=== PATIENT | female | born 1985 | race Asian ===

== ENCOUNTER 2018-07-13 16:32 | Day surgery (SDC) | payer BC, OTHER ==
[~2018-07-13] VITALS: Ht 162.6 cm; Wt 82.4 kg
[2018-07-13] MEDS ORDERED: LACTATED RINGERS 1,000 ML IV SCH (17:00)
[2018-07-13 17:01] VITALS: BP 112/72
[2018-07-13] MEDS ORDERED: SPIROLINA PO (17:17)
[2018-07-13] MEDS ORDERED: IBUP-1484 PO (17:17)
[2018-07-13 17:18] LABS: HCG UR SG 1.015 (1.003-1.030)
[2018-07-13] MEDS ORDERED: MIDAZOLAM 1 MG/ML, 2ML ONE (18:26)
[2018-07-13] MEDS ORDERED: FENTANYL PF 100 MCG/2ML ONE (18:26)
[2018-07-13] MEDS ORDERED: BUPIVACAINE/PF-EPI 0.5% 1:200K ONE (18:27)
[2018-07-13] MEDS ORDERED: PROPOFOL 10 MG/ML, 20ML ONE (18:29)
[2018-07-13] MEDS ORDERED: HYDROmorphone 1 MG/ML, 1ML IV PRN (19:00)
[2018-07-13] MEDS ORDERED: ONDANSETRON 2MG/ML, 2ML IV PRN (19:00)
[2018-07-13] MEDS ORDERED: LORazepam 2 MG/ML, 1ML IVPush PRN (19:00)
[2018-07-13] MEDS ORDERED: hydrALAzine 20 MG/ML, 1ML IV PRN (19:00)
[2018-07-13] MEDS ORDERED: PROMETHAZINE 25 MG/ML, 1ML IV PRN (19:00)
[2018-07-13] MEDS ORDERED: ACETAMINOPHEN 325 MG TABLET PO PRN (19:00)
[2018-07-13] MEDS ORDERED: FENTANYL PF 100 MCG/2ML IV PRN (19:00)
[2018-07-13] MEDS ORDERED: MEPERIDINE/PF 25MG/0.5ML IVPush PRN (19:00)
[2018-07-13] MEDS ORDERED: OXYcodone 5 MG/5 ML ORAL.SOL UDC PO PRN (19:00)
[2018-07-13] MEDS ORDERED: ALBUTEROL SULFATE 2.5 MG/3 ML NPPB PRN (19:00)
[2018-07-13] MEDS ORDERED: METOPROLOL 1 MG/ML, 5ML IV PRN (19:00)
[2018-07-13] MEDS ORDERED: LABETALOL 5MG/ML, 20ML IV PRN (19:00)
[2018-07-13] MEDS ORDERED: PROMETHAZINE 12.5 MG SUPP PR PRN (19:00)
[2018-07-13] MEDS ORDERED: ONDANSETRON ODT 8 MG PO PRN (19:00)
[2018-07-13] MEDS ORDERED: MIDAZOLAM 1 MG/ML, 2ML IV PRN (19:00)
[2018-07-13] MEDS ORDERED: OXYcodone 5 MG/5 ML ORAL.SOL UDC ONE (19:25)
[2018-07-13] MEDS ORDERED: ONDANSETRON 2MG/ML, 2ML IVPush PRN (20:30)
[2018-07-13] MEDS ORDERED: HYDROcodone/APAP 5/325 TABLET PO PRN (20:30)
== END 2018-07-13 21:00 | disposition home or self-care (01) ==
LOC: OUT 16:32 → 4NOR 20:00 → OUT 21:00
PROVIDERS: ATTEND Orthopaedic Surgery
DX: L98.0 Pyogenic granuloma (principal); L60.8 Other nail disorders
CPT/HCPCS: 11421; 11730; 81025; 88305; J2250; J2704; J3010; J7120; G0378